=== PATIENT | female | born 2005 | race Two or more races ===

== ENCOUNTER 2024-06-06 05:00 | Day surgery (SDC) | payer OTHER ==
[2024-06-01 10:46] LABS: URINE APPEARANCE Clear; URINE BILIRRUBIN Negative (NEGATIVE); URINE BLOOD Moderate; URINE COLOR Yellow; URINE GLUCOSE Negative (NEGATIVE); URINE KETONE Negative (NEGATIVE); URINE LEUKOCYTE Negative; URINE NITRATE Negative; URINE PROTEIN Negative (NEGATIVE)
[2024-06-01 10:47] LABS: URINE BACTERIA 36.5 uL (0.0-1933); URINE EPITHELIAL CELLS 3.7 uL (0.0-38.8); URINE RBC 683.5 uL (0.0-20.8)
[2024-06-01 11:00] LABS: HEMATOCRIT 37.8 % (36.0-45.00); HEMOGLOBIN 12.8 g/dL (12.0-15.00); MEAN CELL VOLUME 86.8 fL (80.00-100.00); MEAN CORPUSCULAR HEMOGLOBIN 29.3 pg (27.00-32.0); MEAN CORPUSCULAR HGB CONC 33.8 g/dl (32.0-36.0); PLATELET COUNT 288 K/uL (150-450); RED BLOOD COUNT 4.35 M/uL (4.00-6.00); RED CELL DISTRIBUTION WIDTH 13.5 % (11.5-14.5)
[2024-06-01 11:51] LABS: INR 1.01; PARTIAL THROMBOPLASTIN TIME 31.7 SECONDS (22.0-34.0)
[2024-06-01 11:54] LABS: ALBUMIN 3.8 gm/dL (3.4-5.0); BILIRUBIN TOTAL 0.45 mg/dL (0.3-1.2); CALCIUM 9.1 mg/dL (8.5-10.1); CREATININE SERUM 0.73 mg/dL (0.55-1.02); GFR 102.7; GLOBULINA 3.5 G/DL (2.4-3.5); POTASSIUM 4.15 mEq/L (3.5-5.1); TOTAL PROTEIN 7.3 gm/dL (6.4-8.2)
[2024-06-06] MEDS ORDERED: POVIDONE-IODINE 118 ML BOTT TOP ONE (10:00)
[2024-06-06] MEDS ORDERED: CEFAZOLIN SODIUM 1,000 MG VIAL IV ONE (10:00)
== END 2024-06-06 16:30 | disposition home or self-care (01) ==
LOC: CIR.AMB 05:00 → U 05:00 → CIR.AMB 09:15
PROVIDERS: ATTEND Obstetrics & Gynecology
DX: R87.612 Low grade squamous intraepithelial lesion on cytologic smear of cervix (LGSIL) (principal)